=== PATIENT | male | born 1970 | race Caucasian/White ===

== ENCOUNTER 2023-08-27 06:27 | Inpatient (IN) | payer BC ==
[~2023-08-27] VITALS: Ht 170.2 cm; Wt 60.3 kg
[2023-08-27 08:20] LABS: CHLORIDE 104 mEq/L (98-107); POTASSIUM 3.7 mEq/L (3.5-5.1); SODIUM 141 mEq/L (136-145)
[2023-08-27 08:21] LABS: CALCIUM 8.7 mg/dL (8.7-10.4); CARBON DIOXIDE 27 mEq/L (21-32)
[2023-08-27 08:22] LABS: BASOPHILS % 0.4 % (0.0-2.0); EOSINOPHILS % 0.1 % (0.0-5.0); HEMATOCRIT. 44.3 % (42.0-52.0); LYMPHOCYTES % 24.5 % (20.0-50.0); MEAN CORPUSCULAR HEMOGLOBIN 32.2 pg (28.0-32.0); MEAN CORPUSCULAR VOLUME 94.9 fL (80.0-94.0); MEAN PLATELET VOLUME 9.2 fl (7.4-10.4); MONOCYTES % 5.5 % (2.0-8.0); NEUTROPHILS % 69.5 % (40.0-76.0); PLATELET 226 x1000/uL (130-400); RED BLOOD CELL COUNT 4.66 mill/uL (4.7-6.1); RED CELL DISTRIBUTION WIDTH 13.3 % (11.6-14.6); WHITE BLOOD COUNT 8.1 x1000/uL (4.5-11.0)
[2023-08-27 08:26] LABS: CREATININE 0.8 mg/dL (0.6-1.3); GLUCOSE 105 mg/dL (70-105); UREA NITROGEN BLOOD 10 mg/dL (9-23)
[2023-08-27] MEDS: SODIUM CHLORIDE 0.9% 1,000 ML IV ONE (09:40)
[2023-08-27] MEDS: ONDANSETRON HCL 4MG/2ML INJ IV STA (10:00)
[2023-08-27] MEDS ORDERED: IPRATROPIUM/ALBUTEROL 0.5-3(2.5)MG/3ML NEB NEB PRN (12:00)
[2023-08-27] MEDS ORDERED: ONDANSETRON HCL 4MG/2ML INJ IV PRN (12:00)
[2023-08-27] MEDS ORDERED: DOCUSATE SODIUM 100MG CAPSULE PO PRN (12:00)
[2023-08-27] MEDS ORDERED: KETOROLAC 30MG/ML VIAL IV PRN (12:00)
[2023-08-27] MEDS ORDERED: ACETAMINOPHEN 325MG TABLET PO PRN ×2 (12:00)
[2023-08-27] MEDS ORDERED: MAGNESIUM/ALUMINUM HYDROXIDE/SIMETHICONE 30ML UDC PO PRN (12:00)
[2023-08-27] MEDS ORDERED: NITROGLYCERIN 0.4MG TABLET SL SL PRN (12:00)
[2023-08-27] MEDS ORDERED: CLONIDINE 0.1MG TABLET PO PRN (12:00)
[2023-08-27] MEDS ORDERED: GUAIFENESIN 200MG/10ML SUGAR FREE UDC PO PRN (12:00)
[2023-08-27] MEDS: ENOXAPARIN 40MG/0.4ML SYR SUBCUT SCH (13:00)
[2023-08-27 14:47] LABS: IRON 182 ug/dL (65-175)
[2023-08-27 14:50] LABS: TOTAL IRON BINDING CAPACITY 218 ug/dl (250-425)
[2023-08-27 14:52] LABS: T4 FREE 1.16 ng/dL (0.89-1.76)
[2023-08-27 14:53] LABS: FOLIC ACID (FOLATE) SERUM 10.29 ng/mL (>5.38); THYROID STIMULATING HORMONE 2.81 uIU/mL (0.55-4.78); VITAMIN B12 SERUM 346 pg/mL (211-911)
[2023-08-27] MEDS: ZOLPIDEM TARTRATE 5MG TABLET PO PRN (15:19)
[2023-08-27 17:00] VITALS: BP 119/75; PULSE 95; RESP 18; RESP 20; TEMP 98.5
[2023-08-27 20:00] VITALS: BP 116/79; PULSE 74; RESP 17; TEMP 98.8
[2023-08-28] VITALS: BP 106/65; PULSE 74; RESP 17; TEMP 98
[2023-08-28 04:00] VITALS: BP 110/71; PULSE 71; RESP 17; TEMP 98
[2023-08-28 08:00] VITALS: BP 103/73; PULSE 72; RESP 18; TEMP 97.8
[2023-08-28] MEDS: PANTOPRAZOLE SODIUM 40 MG/VIAL IV SCH (09:00)
[2023-08-28] MEDS ORDERED: OMEP20CA14 MT (11:37)
[2023-08-28] MEDS ORDERED: SUCR1TAB30 MT (11:37)
[2023-08-28 11:54] VITALS: BP 113/77; PULSE 72; TEMP 97.8; O2SAT 10
== END 2023-08-28 12:18 | disposition home or self-care (01) | DRG 392 ==
LOC: ER 06:42 → 5WST 08:45 → EDBEDREQTM 09:00 → EDBEDREQ 09:00 → 6WST 17:29
PROVIDERS: ADMIT Internal Medicine; ATTEND Internal Medicine
DX: K52.9 Noninfective gastroenteritis and colitis, unspecified (principal)
CPT/HCPCS: 36415; 74018; 80048; 82607; 82746; 83036; 83540; 83550; 84439; 84443; 85025; 93970; 99285; J1650; J2470; J7030